=== PATIENT | female | born 1985 | race Caucasian/White ===

== ENCOUNTER 2023-01-10 05:41 | Observation (INO) | payer OTHER ==
[~2023-01-10] VITALS: Ht 165.1 cm; Wt 85.3 kg
[2023-01-10] MEDS ORDERED: DEXAMETHASONE SOD PHOSPHATE 4 MG/ML 1ML VIAL IM ONE (06:30)
[2023-01-10 06:52] LABS: BASOPHILS % (AUTO) 0.6 % (0.0-5.0); EOSINOPHILS % (AUTO) 1.7 % (0.0-8.0); HEMATOCRIT 42.6 % (36-48); MEAN CORPUSCULAR HEMOGLOBIN 29.8 pg (27.0-33.0); MEAN CORPUSCULAR HGB CONC 32.6 g/dL (32.0-36.0); MEAN CORPUSCULAR VOLUME 91.2 fL (79-99); MONOCYTES % (AUTO) 7.3 % (3.0-13.0); NEUTROPHILS % (AUTO) 66.8 % (40.0-77.0); PLATELET COUNT (AUTO) 309 K/uL (130-400); RED BLOOD CELL COUNT(AUTO) 4.67 MIL/uL (4.00-5.50); RED CELL DISTRIBUTION WIDTH 13.3 % (11.0-15.5); WHITE BLOOD COUNT (AUTO) 8.7 K/uL (4.8-10.8)
[2023-01-10 07:20] LABS: ALANINE AMINOTRANSFERASE 76 U/L (12-78); ALBUMIN 3.7 g/dL (3.5-5.0); ASPARTATE AMINOTRANSFERASE 101 U/L (10-37); CARBON DIOXIDE 31 mmol/L (21-32); CHLORIDE 101 mmol/L (101-111); CREATININE 1.1 mg/dL (0.5-1.5); CRP QUANTITATIVE < 2.00 mg/L (0.00-9.0); GLOMERULAR FILTR. RATE CALC 66 mL/min (>90); GLUCOSE,RANDOM 83 mg/dL (70-105); POTASSIUM 3.7 mmol/L (3.5-5.1); SODIUM SERUM 137 mmol/L (136-145); TOTAL PROTEIN, SERUM 7.6 g/dL (6.0-8.3); UREA NITROGEN, BLOOD 13 mg/dL (7-18)
[2023-01-10 07:24] LABS: CREATINE KINASE, TOTAL 3079 U/L (21-232)
[2023-01-10] MEDS ORDERED: LACTATED RINGERS 1000ML 1,000 ML IV ONE (08:00)
[2023-01-10] MEDS ORDERED: MORPHINE 4 MG SYG IVP ONE (08:00)
[2023-01-10 08:05] LABS: ERYTHROCYTE SEDIMENTATION RATE 21 MM/HR (0-20)
[2023-01-10 08:28] LABS: APPEARANCE,URINE CLEAR (CLEAR); BILIRUBIN,URINE NEGATIVE (NEGATIVE); COLOR,URINE COLORLESS (YELLOW); GLUCOSE, URINE (UA) NEGATIVE (NEGATIVE); KETONES,URINE NEGATIVE (NEGATIVE); LEUKOCYTE ESTERASE ,URINE NEGATIVE Leu/uL (NEGATIVE); NITRATE,URINE NEGATIVE (NEGATIVE); OCCULT BLOOD,URINE NEGATIVE (NEGATIVE); PROTEIN,URINE NEGATIVE (NEGATIVE); UROBILINOGEN,URINE 0.2 mg/dL (0.2-1.0)
[2023-01-10] MEDS ORDERED: DOCUSATE SODIUM 100 MG CAP PO PRN (08:30)
[2023-01-10] MEDS ORDERED: ALPRAZOLAM 0.5 MG TABLET PO PRN (08:30)
[2023-01-10] MEDS ORDERED: NITROGLYCERIN 0.4 MG SL TAB SL PRN (08:30)
[2023-01-10] MEDS ORDERED: ACETAMINOPHEN 325 MG TAB PO PRN ×2 (08:30)
[2023-01-10] MEDS ORDERED: GUAIFENESIN SUGAR-FREE 100 MG/5 ML UDCUP PO PRN (08:30)
[2023-01-10] MEDS ORDERED: HYDRALAZINE 25MG TABLET PO PRN (08:30)
[2023-01-10] MEDS ORDERED: LOPERAMIDE HCL 2 MG CAP PO PRN (08:30)
[2023-01-10] MEDS ORDERED: ARTIFICAL TEARS SOL 15 ML OP PRN ×2 (08:30→10:30)
[2023-01-10] MEDS ORDERED: LACTULOSE 20 GM/30 ML UDCUP PO PRN (08:30)
[2023-01-10] MEDS ORDERED: MAG/ALUM/SIMETH 30 ML UDCUP PO PRN (08:30)
[2023-01-10] MEDS ORDERED: ONDANSETRON 4MG INJ IV PRN (08:30)
[2023-01-10] MEDS ORDERED: POLYETHYLENE GLYCOL 3350 17 GM POWD.PACK PO PRN (08:30)
[2023-01-10] MEDS: 0.9%NACL 1000ML 1,000 ML IV SCH ×3 (08:34→22:12)
[2023-01-10] MEDS: KETOROLAC 15MG/ML VIAL (15MG/ML) IV PRN ×2 (10:13→22:12)
[2023-01-10] MEDS ORDERED: LIDOCAINE 5% TOPICAL PATCH TP ONE (10:30)
[2023-01-10] MEDS: LEVOTHYROXINE 75 MCG TABLET PO SCH (11:27)
[2023-01-10] MEDS: HYDROMORPHONE 1 MG INJ IVP PRN ×2 (13:14→19:29)
[2023-01-10 16:22] LABS: AMPHET/METH SCREEN,URINE NEGATIVE (NEGATIVE); BARBITURATE SCREEN, URINE NEGATIVE (NEGATIVE); BENZODIAZEPINES SCREEN,URINE NEGATIVE (NEGATIVE); CANNABINOID SCREEN,URINE NEGATIVE (NEGATIVE); COCAINE SCREEN,URINE NEGATIVE (NEGATIVE); OPIATE SCREEN,URINE POSITIVE (NEGATIVE); PHENCYCLIDINE SCREEN,URINE NEGATIVE (NEGATIVE)
[2023-01-10] MEDS ORDERED: OXYC10TA48 PO ×2 (18:23→20:13)
[2023-01-10] MEDS ORDERED: LEVO75CA5 PO (18:23)
[2023-01-10] MEDS ORDERED: TIZA-211 PO (18:23)
[2023-01-10 19:05] VITALS: BP 123/48
[2023-01-10 23:20] VITALS: BP 91/50
[2023-01-11] MEDS: 0.9%NACL 1000ML 1,000 ML IV SCH ×4 (00:03→15:58)
[2023-01-11] MEDS ORDERED: CLON2TAB11 PO (01:26)
[2023-01-11] MEDS: LEVOTHYROXINE 75 MCG TABLET PO SCH (05:33)
[2023-01-11] MEDS: HYDROMORPHONE 1 MG INJ IVP PRN ×4 (05:42→23:59)
[2023-01-11 06:30] LABS: HEMATOCRIT 35.6 % (36-48); MEAN CORPUSCULAR HEMOGLOBIN 30.3 pg (27.0-33.0); MEAN CORPUSCULAR HGB CONC 33.1 g/dL (32.0-36.0); MEAN CORPUSCULAR VOLUME 91.5 fL (79-99); RED BLOOD CELL COUNT(AUTO) 3.89 MIL/uL (4.00-5.50); RED CELL DISTRIBUTION WIDTH 13.6 % (11.0-15.5); WHITE BLOOD COUNT (AUTO) 9.8 K/uL (4.8-10.8)
[2023-01-11 06:31] LABS: HEMOGLOBIN A1C 4.9 % (4.0-6.0)
[2023-01-11 06:53] LABS: ALBUMIN 2.8 g/dL (3.5-5.0); CREATININE 0.8 mg/dL (0.5-1.5); POTASSIUM 3.9 mmol/L (3.5-5.1)
[2023-01-11 08:31] VITALS: BP 82/51
[2023-01-11] MEDS ORDERED: ACETAMINOPHEN WITH CODEINE 1 TAB TAB PO PRN (09:30)
[2023-01-11] MEDS: KETOROLAC 15MG/ML VIAL (15MG/ML) IV PRN ×2 (09:53→21:42)
[2023-01-11 12:00] VITALS: BP 173/52
[2023-01-11 16:00] VITALS: BP 89/53
[2023-01-11 20:00] VITALS: BP 95/56
[2023-01-11] MEDS: HYDROCORTISONE SOD SUCCINATE 100 MG/2 ML VIAL IV SCH (20:51)
[2023-01-12] VITALS: BP 110/67
[2023-01-12] MEDS: 0.9%NACL 1000ML 1,000 ML IV SCH ×3 (00:31→09:42)
[2023-01-12 04:00] VITALS: BP 104/67
[2023-01-12] MEDS: LEVOTHYROXINE 75 MCG TABLET PO SCH (05:09)
[2023-01-12] MEDS: HYDROMORPHONE 1 MG INJ IVP PRN ×2 (05:09→12:04)
[2023-01-12 05:39] LABS: HEMATOCRIT 39.1 % (36-48); MEAN CORPUSCULAR HEMOGLOBIN 29.7 pg (27.0-33.0); MEAN CORPUSCULAR HGB CONC 31.2 g/dL (32.0-36.0); MEAN CORPUSCULAR VOLUME 95.1 fL (79-99); RED BLOOD CELL COUNT(AUTO) 4.11 MIL/uL (4.00-5.50); WHITE BLOOD COUNT (AUTO) 8.5 K/uL (4.8-10.8)
[2023-01-12 06:15] LABS: CREATININE 0.9 mg/dL (0.5-1.5); POTASSIUM 4.1 mmol/L (3.5-5.1)
[2023-01-12 08:00] VITALS: BP 116/60
[2023-01-12] MEDS: HYDROCORTISONE SOD SUCCINATE 100 MG/2 ML VIAL IV SCH ×2 (09:00→14:53)
[2023-01-12] MEDS: KETOROLAC 15MG/ML VIAL (15MG/ML) IV PRN (09:08)
[2023-01-12 16:00] VITALS: BP 100/51
== END 2023-01-12 17:20 | disposition home or self-care (01) ==
LOC: EDH 05:41 → EDHIP 08:06 → 3BH 19:10
PROVIDERS: ADMIT Internal Medicine Critical Care Medicine; ATTEND Internal Medicine Critical Care Medicine
DX: M62.82 Rhabdomyolysis (principal); Z20.822 Contact with and (suspected) exposure to COVID-19; M25.552 Pain in left hip; M25.551 Pain in right hip; E03.9 Hypothyroidism, unspecified; M54.2 Cervicalgia; M60.9 Myositis, unspecified; E66.01 Morbid (severe) obesity due to excess calories; F17.290 Nicotine dependence, other tobacco product, uncomplicated; Z88.0 Allergy status to penicillin; Z90.710 Acquired absence of both cervix and uterus; Z79.899 Other long term (current) drug therapy; W19.XXXA Unspecified fall, initial encounter; Y92.009 Unspecified place in unspecified non-institutional (private) residence as the place of occurrence of the external cause; Y93.89 Activity, other specified
CPT/HCPCS: 96374; 96376 ×3; 96372; 96361 ×3; 96375 ×2; 99285; 84443; 82550 ×3; 83615; 80053 ×2; 80305; 85025; 85651; 84439; 86038 ×2; 86255 ×3; 84481; 86701; 87390; 86140; 86431; 81003; 36415 ×3; 87635; 74176; 83036; 83735; 85027 ×2; 97161; 80048; 97530; G0378 ×56; C9803; J1170 ×8; J2405; J2270; J1100; J1885 ×5; J1720 ×3; 83520; 86215; 86235